=== PATIENT | male | born 1950 | race Caucasian/White ===

== ENCOUNTER 2021-05-07 10:13 | Observation (INO) | payer OTHER ==
[~2021-05-07] VITALS: Ht 193 cm; Wt 113.0 kg
[~2021-05-07 10:13] MED LIST: (None)20 M1 PO; ALBU3IS INH; ALBU90OI INH; ASPI325EC PO; Atarax10 MG PO; B-1100 MG PO; B-121000 MC2 PO; BETA.05TCA TOP; BUDE6HFA INH; CALCAVITDA PO; CARV25 PO; CREON DR 24,001 EACH PO; Coreg12.5 MG PO; DABI150C PO; FISH1000 PO; FURO40 PO; Garlic1000 MG PO; Heparin 5,5000 U/0.5 SQ; INSU100I6; LEVO750 PO; LISI5 PO; METO50 PO; MORP30 PO; NYST100P; OLAN5 PO; OMEG1CAP30 PO; OMEPRAZOLE MAGN20 MG PO; ONE DAILY COMP1 EACH PO; OXYACE5T PO; OXYC5; Omeprazole20 M1; Omeprazole20 M1 PO; PARO20 PO; PAXIL40 MG PO; PERIDEX15 ML MM; PRAZ1 PO; PRED10 PO; PREG150 PO; PREVALITE PAC4 G/PKT PO; PRIM50 PO; PYRI100 PO; SILD50TA PO; TAMS.4ER PO; TRAZ100 PO; XARELTO15 MG PO; XARELTO20 MG PO; [UNRECOGNIZED DRUG - OTHER] INH
[2021-05-07 11:08] LABS: Hematocrit 44.1 % (37.0-53.0); Hemoglobin 13.8 g/dL (13.5-17.5); Mean Corpuscular HGB 30.1 pg (26.0-34.0); Mean Corpuscular HGB Conc 31.3 g/dL (31.5-36.5); Mean Corpuscular Volume 96 fL (80-100); RDW Coefficient Variation 13.2 % (11.7-14.2); RDW Standard Deviation 46.9 fL (35.1-46.3); Red Blood Cell Count 4.59 M/mm3 (4.30-5.90)
[2021-05-07 11:21] LABS: Anion Gap 5 mmol/L (6-16); Blood Urea Nitrogen 8 mg/dL (8-24); Bun/Creatinine Ratio 10.9 (12.0-20.0); CO2, Blood 31 mmol/L (21-32); Calcium, Blood 8.6 mg/dL (8.5-10.1); Chloride, Blood 104 mmol/L (98-108); Creatinine, Blood 0.74 mg/dL (0.60-1.20); Glomerular Filtration Rate >60 (60-); Glucose, Blood 107 mg/dL (70-99); Potassium, Blood 3.6 mmol/L (3.5-5.5); Sodium, Blood 140 mmol/L (136-145)
[2021-05-07 11:55] LABS: White Blood Cell Count 14.95 K/mm3 (4.00-11.30)
[2021-05-07 11:56] LABS: Mean Platelet Volume 13.7 fL (9.1-12.4)
[2021-05-07 11:57] LABS: Platelet Count 65 K/mm3 (150-400)
[2021-05-07 12:19] LABS: BASOPHILS PERCENT MAN 0 % (0-2); EOSINOPHILS PERCENT MAN 0 % (0-6); LYMPHOCYTES ABSOLUTE MAN 1.79 K/mm3 (0.84-5.20); LYMPHOCYTES PERCENT MAN 12 % (21-46); MONOCYTES ABSOLUTE MAN 5.08 K/mm3 (0.16-1.47); MONOCYTES PERCENT MAN 34 % (4-13); NEUTROPHILS ABSOLUTE MAN 8.07 K/mm3 (1.96-9.15); SEG NEUTROPHILS PERCENT MAN 54 % (41-73); TOTAL CELLS COUNTED 100
[2021-05-07 12:40] LABS: Base Excess Venous 7.6 mmol/L; Bicarbonate Venous 29.7 mmol/L (24.0-30.0); PCO2 Venous 55.9 mmHg (38-42); PO2 Venous 76.9 mmHg (38-42); pH Blood Venous 7.38 (7.34-7.37)
[2021-05-07] MEDS ORDERED: OXYC15ER PO (14:28)
[2021-05-07] MEDS ORDERED: ACET500 PO ×2 (14:28→14:40)
[2021-05-07] MEDS ORDERED: COMBIVENT RESPIM4 G1 INH (14:41)
[2021-05-07] MEDS ORDERED: IPRAT-ALBUT 0.5-3 ML INH (14:41)
[2021-05-07] MEDS ORDERED: CALCIUM 500 MG1 EAC2 PO (14:42)
[2021-05-07] MEDS ORDERED: Aspir 8181 MG PO (14:42)
[2021-05-07] MEDS ORDERED: BUDESONIDE-FO10.2 G2 INH (14:42)
[2021-05-07] MEDS ORDERED: ZYRTEC10 M2 PO (14:43)
[2021-05-07] MEDS ORDERED: Vitamin D1000 UNI1 PO (14:43)
[2021-05-07] MEDS ORDERED: Carvedilol12.5 MG PO (14:43)
[2021-05-07] MEDS ORDERED: FINA5 PO (14:43)
[2021-05-07] MEDS ORDERED: FISH OIL 1,2001 EAC1 PO ×2 (14:44)
[2021-05-07] MEDS ORDERED: OMEP20ER PO (14:45)
[2021-05-07] MEDS ORDERED: MULTI-VITAMIN1 EAC2 PO (14:45)
[2021-05-07] MEDS ORDERED: MELA3 PO (14:45)
[2021-05-07] MEDS ORDERED: OXYC5 PO (14:47)
[2021-05-07] MEDS ORDERED: PRED5 PO (14:49)
[2021-05-07] MEDS ORDERED: Primidone50 MG PO (14:49)
[2021-05-07] MEDS ORDERED: PARO20 PO (14:49)
[2021-05-07] MEDS ORDERED: PANCRELIPASE PO (14:49)
[2021-05-07] MEDS ORDERED: TAMS.4ER PO (14:50)
[2021-05-07] MEDS ORDERED: SODIUM FLUORID100 M2 UD (14:50)
--- NOTE | 2021-05-07 17:08 | NUR ---
ADMIT PT ADMITTED AT 1600. PT ORIENTED TO ROOM & GIVEN CALL LIGHT. SNACK & BEVERAGE PROVIDED. PT REPORTS FEELING CONSTIPATED. THIS WAS RELAYED TO DR. SOLOMON AND ORDER FOR SENNA WAS OBTAINED. NICOTINE PATCH ORDER ALSO OBTAINED FRO . PT STATES HE WANTS TO BE A FULL CODE. DR. SOLOMON ORDERED TO CHANGE FROM DNR TO FULL CODE. PT SATING IN THE 90S ON 2L O2 VIA NC. REQUESTING BREATHING TREATMENT. RT NOTIFIED. FAMILY AWARE OF PT ADMIT. FAX SENT TO [facility] FOR ACCURATE MED REC TO BE COMPLETED.
[2021-05-08 00:11] LABS: U Amphetamine Screen Not Detected; U Barbituate Screen DETECTED; U Benzodiazapine Screen DETECTED; U Buprenorphine Screen Not Detected; U Cannabinoids Screen Not Detected; U Cocaine Screen Not Detected; U Methadone Screen Not Detected; U Methamphetamine Screen Not Detected; U Opiates Screen Not Detected; U Oxycodone Screen DETECTED; U Phencyclidine Screen Not Detected; U Propoxyphene Screen Not Detected
[2021-05-08] MEDS ORDERED: MUPIROCIN1 G1 TOP (03:17)
[2021-05-08] MEDS ORDERED: PREG75 PO (03:20)
--- NOTE | 2021-05-08 04:01 | NUR ---
SHIFT SUMMARY AOX3 WITH CONFUSION AND INCRESED ANXIETY IN AND OUT.UNSTAIDY GAIT NOTED PATIENT WONT ASK FOR ASSISTANCE TO GO TO THE BATHROOM BED ALARM ON PT TEACHING DONE WHY ITS IMPORTANT OF CALLING STAFF FOR ASISST WITH TRANSFER BUT WAS VERY UPSATE STATING "I CAN DO WHAT I WANT TO DO" C/O PAIN 11/19 TO HIS LOWER BACK PT REQUETED OXYCODONE 15MG HE TAKES IT HOME ROUTINE ADM WITH POSTIVE EFFECT.PT REFUSED TO WEAR CPAP AFTER PUT IT ON FOR FEW MIN STATING ITS NOT COMFOTABLE RT MADE AWARE .
[2021-05-08 05:59] LABS: Anion Gap 7 mmol/L (6-16); Blood Urea Nitrogen 12 mg/dL (8-24); Bun/Creatinine Ratio 17.9 (12.0-20.0); CO2, Blood 27 mmol/L (21-32); Calcium, Blood 8.4 mg/dL (8.5-10.1); Chloride, Blood 104 mmol/L (98-108); Creatinine, Blood 0.67 mg/dL (0.60-1.20); Glomerular Filtration Rate >60 (60-); Glucose, Blood 127 mg/dL (70-99); Sodium, Blood 138 mmol/L (136-145)
[2021-05-08 06:00] LABS: Hematocrit 44.8 % (37.0-53.0); Hemoglobin 13.8 g/dL (13.5-17.5); Mean Corpuscular HGB 29.9 pg (26.0-34.0); Mean Corpuscular HGB Conc 30.8 g/dL (31.5-36.5); Mean Corpuscular Volume 97 fL (80-100); RDW Standard Deviation 46.4 fL (35.1-46.3); Red Blood Cell Count 4.62 M/mm3 (4.30-5.90)
[2021-05-08 06:10] LABS: BASOPHILS ABSOLUTE AUTO 0.01 K/mm3 (0.00-0.23); BASOPHILS PERCENT AUTO 0 % (0-2); EOSINOPHILS ABSOLUTE AUTO 0.04 K/mm3 (0.00-0.68); EOSINOPHILS PERCENT AUTO 0 % (0-6); IMMATURE GRAN ABSOLUTE AUTO 0.41 K/mm3 (0.00-0.10); IMMATURE GRAN PERCENT AUTO 5 % (0-1); LYMPHOCYTES ABSOLUTE AUTO 0.71 K/mm3 (0.84-5.20); LYMPHOCYTES PERCENT AUTO 8 % (21-46); MONOCYTES ABSOLUTE AUTO 1.39 K/mm3 (0.16-1.47); MONOCYTES PERCENT AUTO 15 % (4-13); NEUTROPHILS ABSOLUTE AUTO 6.54 K/mm3 (1.96-9.15); NEUTROPHILS PERCENT AUTO 72 % (41-73)
[2021-05-08 07:21] LABS: Mean Platelet Volume 13.1 fL (9.1-12.4)
[2021-05-08 07:23] LABS: Platelet Count 76 K/mm3 (150-400)
[2021-05-08] MEDS ORDERED: PRED5 PO (12:00)
[2021-05-08] MEDS ORDERED: ALBU90OI INH (12:01)
[2021-05-08] MEDS ORDERED: ASCO500 PO (12:01)
[2021-05-08] MEDS ORDERED: GUAI600T33 PO (12:02)
[2021-05-08] MEDS ORDERED: AZIT500 PO (12:02)
[2021-05-08] MEDS ORDERED: VISBIOME 112.51 EACH PO (12:03)
[2021-05-08] MEDS ORDERED: Nicoderm Cq1 EACH TOP (12:03)
[2021-05-08] MEDS ORDERED: Cyclobenzaprine5 MG PO (12:04)
[2021-05-08] MEDS ORDERED: CEFD300 PO (12:04)
--- NOTE | 2021-05-08 13:58 | NUR ---
DISCHARGE SUMMARY PATIENT IS ALERT AND ORIENTED X4. PATIENT WAS DISCHARGED HOME. PATIENT VERBALLY UNDERSTOOD DISCHARGE INSTRUCTIONS. PATIENT HAD NO ACUTE EVENTS THIS SHIFT. PATIENT CALLED [facility] AND LEFT WITH NURSE ISRAEL WITHOUT INCIDENT.
== END 2021-05-08 13:22 | disposition home or self-care (01) ==
LOC: ER 10:13 → MEDS 10:14
PROVIDERS: Nurse Practitioner Acute Care; Student in an Organized Health Care Education/Training Program; ADMIT Internal Medicine
DX: A41.9 Sepsis, unspecified organism (principal); J44.0 Chronic obstructive pulmonary disease with (acute) lower respiratory infection; J20.9 Acute bronchitis, unspecified; J44.1 Chronic obstructive pulmonary disease with (acute) exacerbation; J96.21 Acute and chronic respiratory failure with hypoxia; G47.33 Obstructive sleep apnea (adult) (pediatric); I48.20 Chronic atrial fibrillation, unspecified; I10 Essential (primary) hypertension; F17.210 Nicotine dependence, cigarettes, uncomplicated; G89.29 Other chronic pain; M54.9 Dorsalgia, unspecified; E66.01 Morbid (severe) obesity due to excess calories; D69.6 Thrombocytopenia, unspecified; Z66 Do not resuscitate; Z88.0 Allergy status to penicillin; Z79.01 Long term (current) use of anticoagulants; Z91.19 Patient's noncompliance with other medical treatment and regimen; Z79.82 Long term (current) use of aspirin; Z79.51 Long term (current) use of inhaled steroids; Z79.52 Long term (current) use of systemic steroids; Z99.81 Dependence on supplemental oxygen; Z68.32 Body mass index [BMI] 32.0-32.9, adult
CPT/HCPCS: 36415; 71260; 80048; 82803; 84145; 85025; 85049; 93005; 93010; 94640; 94660; 94762; 96374; 96375; 96376; 99285-25; A9270; G0378; J1885; J2930; J7030; J7512; Q9967

== ENCOUNTER 2022-04-22 10:04 | Emergency (ER) | payer OTHER ==
[~2022-04-22] VITALS: Ht 190.5 cm; Wt 85.7 kg
[~2022-04-22 10:04] MED LIST changes: +ACET500 PO; +ASCO500 PO; +AZIT500 PO; +Aspir 8181 MG PO; +BUDESONIDE-FO10.2 G2 INH; +CALCIUM 500 MG1 EAC2 PO; +CEFD300 PO; +COMBIVENT RESPIM4 G1 INH; +Carvedilol12.5 MG PO; +Cyclobenzaprine5 MG PO; +DULERA 100 MCG/13 GM INH; +FINA5 PO; +FISH OIL 1,2001 EAC1 PO; +GUAI600T33 PO; +IPRAT-ALBUT 0.5-3 ML INH; +MELA3 PO; +MULTI-VITAMIN1 EAC2 PO; +MUPIROCIN1 G1 TOP; +Nicoderm Cq1 EACH TOP; +OMEP20ER PO; +OXAYDO5 M1 PO; +OXYC15ER PO; +OXYC5 PO; +PANCRELIPASE PO; +PRED5 PO; +PREG75 PO; +Prednisone10 MG PO; +Primidone50 MG PO; +Robaxin750 MG PO; +SODIUM FLUORID100 M2 UD; +STRIVERDI RESPIM4 G1 INH; +VISBIOME 112.51 EACH PO; +Vitamin D1000 UNI1 PO; +ZYRTEC10 M2 PO
== END 2022-04-22 11:54 | disposition home or self-care (01) ==
LOC: ER 10:04
DX: M48.54XA Collapsed vertebra, not elsewhere classified, thoracic region, initial encounter for fracture (principal); M48.56XA Collapsed vertebra, not elsewhere classified, lumbar region, initial encounter for fracture; M85.88 Other specified disorders of bone density and structure, other site; G89.29 Other chronic pain; J44.9 Chronic obstructive pulmonary disease, unspecified; I48.91 Unspecified atrial fibrillation; I10 Essential (primary) hypertension; F17.200 Nicotine dependence, unspecified, uncomplicated; G47.33 Obstructive sleep apnea (adult) (pediatric); Z99.81 Dependence on supplemental oxygen; Z79.899 Other long term (current) drug therapy
CPT/HCPCS: 94644; 94664; A9270; J1170; J1885

== ENCOUNTER 2022-05-03 11:21 | Inpatient (IN) | payer OTHER ==
[~2022-05-03] VITALS: Ht 193 cm; Wt 102.0 kg
[~2022-05-03 11:21] MED LIST changes: +PRED20 PO
[2022-05-03 12:29] LABS: Base Excess Venous 15.7 mmol/L; PCO2 Venous 81.4 mmHg (38-42); pH Blood Venous 7.32 (7.34-7.37)
[2022-05-03 12:51] LABS: Hematocrit 43.2 % (37.0-53.0); Hemoglobin 13.5 g/dL (13.5-17.5); Mean Corpuscular HGB 31.5 pg (26.0-34.0); Mean Corpuscular HGB Conc 31.3 g/dL (31.5-36.5); Mean Corpuscular Volume 101 fL (80-100); RDW Coefficient Variation 12.3 % (11.7-14.2); RDW Standard Deviation 45.6 fL (35.1-46.3); Red Blood Cell Count 4.29 M/mm3 (4.30-5.90)
[2022-05-03 12:53] LABS: Mean Platelet Volume 14.1 fL (9.1-12.4); Platelet Count 117 K/mm3 (150-400); White Blood Cell Count 12.25 K/mm3 (4.00-11.30)
[2022-05-03 13:05] LABS: Albumin, Blood 3.4 g/dL (3.4-5.0); Albumin/Globulin Ratio 0.9 (0.8-1.8); Bilirubin, Total 0.5 mg/dL (0.1-1.0); Bun/Creatinine Ratio 15.6 (12.0-20.0); Calcium, Blood 8.4 mg/dL (8.5-10.1); Creatinine, Blood 0.58 mg/dL (0.60-1.20); Globulin, Blood 3.9 g/dL (2.2-4.0); Potassium, Blood 4.3 mmol/L (3.5-5.5); Total Protein, Blood 7.3 g/dL (6.4-8.2)
[2022-05-03 13:33] LABS: BAND PERCENT MAN 1 % (0-8); BASOPHILS PERCENT MAN 0 % (0-2); EOSINOPHILS PERCENT MAN 0 % (0-6); LYMPHOCYTES ABSOLUTE MAN 0.98 K/mm3 (0.84-5.20); LYMPHOCYTES PERCENT MAN 8 % (21-46); METAMYELOCYTE ABSOLUTE MAN 0.36 K/mm3 (0.00-0.00); METAMYELOCYTE PERCENT MAN 3 % (0-0); MONOCYTES ABSOLUTE MAN 3.55 K/mm3 (0.16-1.47); MONOCYTES PERCENT MAN 29 % (4-13); MYELOCYTE ABSOLUTE MAN 0.12 K/mm3 (0.00-0.00); MYELOCYTE PERCENT MAN 1 % (0-0); NEUTROPHILS ABSOLUTE MAN 7.22 K/mm3 (1.96-9.15); SEG NEUTROPHILS PERCENT MAN 58 % (41-73); TOTAL CELLS COUNTED 100
[2022-05-03 14:09] LABS: Influenza A, PCR NEGATIVE (NEGATIVE); Influenza B, PCR NEGATIVE (NEGATIVE); Resp Syncytial Virus, PCR NEGATIVE (NEGATIVE); SARS-Cov-2 (COVID-19) PCR, MMC NEGATIVE (NEGATIVE)
[2022-05-03 16:18] LABS: Source, Urine Clean Catch
[2022-05-03 16:22] LABS: Appearance, Urine Clear (Clear); Bilirubin, Urine Neg (Neg); Blood, Urine Neg (Neg); Color, Urine Yellow (P-Yellow); Glucose Qualitative, Urine Neg (Neg); Ketones, Urine Neg (Neg); Leukocyte Esterase, Urine Neg (Neg); Nitrite, Urine Neg (Neg); Protein, Urine 1+ (Neg); Urobilinogen, Urine NORM (Normal); pH, Urine 6.5 (5.0-8.0)
[2022-05-03 17:34] LABS: Base Excess Venous 15.5 mmol/L; Bicarbonate Venous 35.2 mmol/L (24.0-30.0); PCO2 Venous 86.4 mmHg (38-42)
[2022-05-03 21:33] LABS: Base Excess Venous 15.9 mmol/L; Bicarbonate Venous 37.3 mmol/L (24.0-30.0); PCO2 Venous 54.2 mmHg (38-42); pH Blood Venous 7.47 (7.34-7.37)
--- NOTE | 2022-05-03 21:58 | NUR ---
UPDATE PT REQUESTED UPDATE ON , THIS RN CALLED ER FOR UPDATE. PT UPDATED THAT PT'S IS SLEEPING AT THIS TIME. PLAN FOR PT'S TO STAY IN ER AND HAVE CHEMISTRY TECHNICIAN CONSULT WITH PT'S IN AM. BROTHER IN LAW BILL UPDATED PER PT REQUEST.
[2022-05-04 04:11] LABS: Hematocrit 40.3 % (37.0-53.0); Mean Corpuscular HGB 31.9 pg (26.0-34.0); Mean Corpuscular HGB Conc 32.3 g/dL (31.5-36.5); Mean Corpuscular Volume 99 fL (80-100); RDW Coefficient Variation 12.1 % (11.7-14.2); RDW Standard Deviation 44.4 fL (35.1-46.3); Red Blood Cell Count 4.08 M/mm3 (4.30-5.90)
[2022-05-04 04:14] LABS: Mean Platelet Volume 13.6 fL (9.1-12.4); Platelet Count 118 K/mm3 (150-400); White Blood Cell Count 5.46 K/mm3 (4.00-11.30)
[2022-05-04 04:26] LABS: BAND PERCENT MAN 2 % (0-8); BASOPHILS PERCENT MAN 0 % (0-2); EOSINOPHILS PERCENT MAN 0 % (0-6); LYMPHOCYTES ABSOLUTE MAN 0.49 K/mm3 (0.84-5.20); LYMPHOCYTES PERCENT MAN 9 % (21-46); MONOCYTES ABSOLUTE MAN 0.38 K/mm3 (0.16-1.47); MONOCYTES PERCENT MAN 7 % (4-13); NEUTROPHILS ABSOLUTE MAN 4.58 K/mm3 (1.96-9.15); SEG NEUTROPHILS PERCENT MAN 82 % (41-73); TOTAL CELLS COUNTED 100
[2022-05-04 04:32] LABS: Albumin, Blood 3.1 g/dL (3.4-5.0); Albumin/Globulin Ratio 0.8 (0.8-1.8); Bilirubin, Total 0.6 mg/dL (0.1-1.0); Bun/Creatinine Ratio 26.2 (12.0-20.0); Calcium, Blood 8.7 mg/dL (8.5-10.1); Creatinine, Blood 0.54 mg/dL (0.60-1.20); Potassium, Blood 4.3 mmol/L (3.5-5.5); Total Protein, Blood 7.1 g/dL (6.4-8.2)
--- NOTE | 2022-05-04 05:14 | NUR ---
ARRIVAL TO [facility]/SHIFT SUMMARY PT ARRIVED TO [facility] AT APPROXIMATELY 2100. PT ARRIVED ON BiPAP 14/6 30% FiO2 WITH RT AT BEDSIDE. PT WAS SLID OVER FROM ER GURNEY TO HOSPITAL BED WITH 4 CLINICAL STAFF MEMBERS AND RT. PT A&Ox4, COMMUNICATES NEEDS AND ANSWERING QUESTIONS APPROPRIATELY. VSS ON ARRIVAL, SpO2> 92% ON BiPAP 14/6 30% FiO2, DENIES SOB, RR 20's. BP STABLE, AFIB 90-120's, DENIES CP. PT COMPLAINING OF PAIN IN RIB/BACK, STARTED ON HOME REGIMEN PAIN CONTROL. PT MILDLY FRUSTRATED BUT COOPERATIVE WHEN DOING ADMISSION Hx. VS REMAINED STABLE THROUGHOUT SHIFT, PT REMAINED IN AFIB 90-120's DENIES CP/PRESSURE/SOB. PT TOLERATED BiPAP 14/6 30% FiO2 WELL THOUGHOUT SHIFT. PT CONTINENT OF URINE, USED URINAL WITH ASSISTANCE. NO BM THIS SHIFT. NO OTHER EVENTS, WILL REPORT TO ONCOMING RN.
[2022-05-04] MEDS ORDERED: CYCL10 PO (10:25)
[2022-05-04] MEDS ORDERED: ASMANEX HFA13 G6 INH (10:26)
[2022-05-04] MEDS ORDERED: COMBIVENT RESPIM4 G1 INH (10:28)
[2022-05-04] MEDS ORDERED: IPRAT-ALBUT 0.5-3 ML INH (10:29)
[2022-05-04] MEDS ORDERED: STIOLTO RESPIMAT4 G1 INH (10:30)
--- NOTE | 2022-05-04 17:00 | NUR ---
SHIFT SUMMARY PT REMAINS ALERT AND ORIENTED. VS STABLE. HR WAS AFIB ON THE MONITOR IN THE 90'S, BUT TELEMETRY HAS BEEN DISCONTINUED. BP STABLE. PT HAS BEEN OFF BIPAP ALL SHIFT AND TOLERATING 2L NC WHICH IS HIS BASELINE AND SATS REMAIN ABOVE 90%. PT COMPLAINS OF PAIN IN HIS BACK AND RIB AREA MOST OF SHIFT AND MEDICATED PER EMAR. PT UP TO RECLINER MULTIPLE TIMES THROUGHOUT SHIFT WITH 1 ASSIST, GATE BELT AND WALKER. PT PROVIDED BED BATH TODAY. PALLIATIVE CARE IN TO VISIT PT THIS EVENING. PT ANXIOUS MOST OF SHIFT ABOUT HIS THAT IS HOLDING IN THE ER. WILL CONTINUE TO MONITOR AND REPORT TO ONCOMING RN
--- NOTE | 2022-05-04 18:31 | NUR ---
CASE CONF WITH RN, REPORTS PT IS DOING BETTER AND STATUS HAS BEEN CHANGED TO MEDICAL STATUS, NO CONCERNS AT THIS TIME. MET WITH PT, HE IS SITTING UPRIGHT IN CHAIR AND APPEARS TO BE ANXIOUS. PT HAS BEEN OFF BIPAP SINCE YESTERDAY AND IS NOW ON NASAL CANNULA. PT SPEAKING IN FULL SENTANCES, BUT THE CONVERSATION PROGRESSES, BECOMES INCREASINGLY AND UNABLE TO COMPLETE HIS SENTANCES. PT VERBALIZES THAT HE IS MOST CONCERNED ABOUT HIS . PTS HAS DEMENTIA AND HI IS HER SOLE CAREGIVER IN THEIR HOME. SHE ACCOMPANIED HIM TO THE ER LAST NIGHT AND SINCE HE WAS ADMITTED TO THE HOSPITAL, THERE IS NO ONE TO CARE FOR HER. SHE HAS PARKINSONS/DEMENTIA AND IS UNABLE TO CARE FOR HERSELF. SHE, (JERMAINE GUARDADO) REMAINS IN THE ED IN THE ED, ADMITTED CW/CM LOOK FOR TEMPORARY PLACEMENT WHILE THE PTS RECOVERS. PT VERBALIZES FURTHER CONCERNS THAT HE IS NOT SURE THAT WHEN HE GET BETTER, THAT HE IS GOING TO BE ABLE TO PROVIDE CARE FOR HIS . HE REPORTS HE HAS BEEN BECOMING INCREASINGLY WEAK, UNSTEADY ON HIS FEET IN ADDITION TO HIS INTENSE BACK PAIN. HE REPORTS HE HAS BEEN UNABLE TO SHOWER FOR THE LAST COUPLE OF WEEKS AND THE L AST 2 DAYS WAS UNABLE TO PREPARE FOOD FOR HIMSELF OR HIS . HE VERBALIZES THAT HE DOESNT HAVE ANY FAMILY OR FRIENDS THAT ARE WILLING TO HELP. HE STATES, "MY NIEGHBOR AND BROTHER IN LAW OFFER, BUT NEVER ANSWER THEIR PHONE IF I REACH OUT FOR HELP." PT FEELS OVERWHELMED AND ALONE. REASSURED HIM THAT WE WILL CONTINUE TO CARE FOR HER IN THE HOSPITAL AND WILL NOT DISCHARGE HER HOME ALONE OR IN AN UNSAFE SITUATION AND THIS SEEMS TO EASE SOME OF HIS ANXIETY. ADVISED PT THAT I WILL ARRANGE TO HAVE HIS BROUGHT TO HIS ROOM SO THEY CAN VISIT AFTER DINNER. PT IS GRATEFUL AND LOOKING FORWARD TO SEEING HER HE HASNT SEEN OR HEARD FROM SINCE HE WAS ADMITTED LAST NIGHT FROM THE ED. ADVISED I WILL HAVE CM FOLLOW UP TOMORROW TO EXPLORE A DC PLAN FOR HIM AND HIS . WILL MAKE SURE HE HAS ANOTHER VISIT WITH HIS TOMORROW.
--- NOTE | 2022-05-04 18:49 | NUR ---
UPDATE REPORT GIVEN TO MEDICAL FLOOR RN. PT TAKEN UP BY KATHLEEN
--- NOTE | 2022-05-04 19:14 | NUR ---
PATIENT TRANSFERRED FROM PCU 12 TO ROOM 328. REPORT RECEIVED FROM ANKUSH HASTINGS. 2LO2 TO MAINTAIN SATS, VERY SOB WITH TRANSFER, RECOVERED QUICKLY. A/OX4, ORIENTED TO ROOM AND USE OF CALL LIGHT. ARRIVED WITH VOLUNTEER TO VISIT FROM ED.
--- NOTE | 2022-05-05 05:24 | NUR ---
SUMMARY: NO ACUTE EVENTS OVERNIGHT. PATIENT AOX4. VSS. PATIENT ON 3L NC. HE WORE BIPAP OVERNIGHT WITH 3-4L O2 BLEED. PATIENT UP TO CHAIR WITH 1X ASSIST. VERY SHORT OF BREATH WHEN UP AMBULATING. VOIDS IN URINAL. PAIN MEDS GIVEN PER EMAR. IV STEROIDS GIVEN. CALL LIGHT IN REACH. PATIENT REFUSES TO HAVE THE END ON THE BED IN PLACE HIS FEET TOUCH IT DUE TO HIS HEIGHT. EDUCATED PATIENT TO CALL BEFORE HE GETS OUT OF BED.
--- NOTE | 2022-05-05 17:17 | NUR ---
PATIENT A/OX4, UP WITH 1 ASSIST TO CHAIR. 2-3LO2 TO MAINTAIN SATS, BIPAP IN USE AT [facility]. CHRONIC BACK PAIN, MEDICATING WITH OXYCODONE AND TYLENOL. VSS THIS SHIFT. COOPERATIVE WITH CARE, HOWEVER ANXIOUS AT TIMES. WORKING ON GETTING ON OHP. HOLDING IN ED D/T PATIENT BEING HER PRIMARY CAREGIVER. NO ACUTE CHANGES THIS SHIFT.
--- NOTE | 2022-05-06 03:56 | NUR ---
NEWSPAPER EDITOR SUMMARY DBP ELEVATED, OTHERWISE VSS. UP WITH OBS IN ROOM FOR SAFETY. PT EASILY FRUSTRATED WITH GETTING TO AND FROM THE BED TO CHAIR AND BACK. O2 PER NC AT 2-3L/MIN. HOB ELEVATED WHILE IN BED. HAS BEEN RESTING WITH FEW INTERRUPTIONS WITH THE EXCEPTION OF CALLING OUT FOR PAIN MEDS WHEN HE COULDNT FIND HIS CALL LIGHT. RECEIVED ANALGESICS ABOUT EVERY 4-5 HRS THIS SHIFT - SEE [facility] FOR DETAILS. RESTING QUIETLY AT THIS TIME. CALL LIGHT IN REACH. [facility] ONTINUE TO MONITOR.
[2022-05-06 05:42] LABS: Hematocrit 38.2 % (37.0-53.0); Hemoglobin 12.5 g/dL (13.5-17.5); Mean Corpuscular HGB 32.1 pg (26.0-34.0); Mean Corpuscular HGB Conc 32.7 g/dL (31.5-36.5); Mean Corpuscular Volume 98 fL (80-100); Mean Platelet Volume 12.8 fL (9.1-12.4); Platelet Count 127 K/mm3 (150-400); RDW Coefficient Variation 12.6 % (11.7-14.2); RDW Standard Deviation 44.9 fL (35.1-46.3)
[2022-05-06 05:43] LABS: BASOPHILS ABSOLUTE AUTO 0.01 K/mm3 (0.00-0.23); BASOPHILS PERCENT AUTO 0 % (0-2); EOSINOPHILS ABSOLUTE AUTO 0.06 K/mm3 (0.00-0.68); EOSINOPHILS PERCENT AUTO 1 % (0-6); IMMATURE GRAN ABSOLUTE AUTO 0.31 K/mm3 (0.00-0.10); IMMATURE GRAN PERCENT AUTO 4 % (0-1); LYMPHOCYTES ABSOLUTE AUTO 0.64 K/mm3 (0.84-5.20); LYMPHOCYTES PERCENT AUTO 7 % (21-46); MONOCYTES ABSOLUTE AUTO 0.54 K/mm3 (0.16-1.47); MONOCYTES PERCENT AUTO 6 % (4-13); NEUTROPHILS PERCENT AUTO 82 % (41-73); White Blood Cell Count 8.86 K/mm3 (4.00-11.30)
[2022-05-06 06:06] LABS: Bun/Creatinine Ratio 32.6 (12.0-20.0); Calcium, Blood 8.7 mg/dL (8.5-10.1); Creatinine, Blood 0.74 mg/dL (0.60-1.20); Potassium, Blood 4.5 mmol/L (3.5-5.5)
--- NOTE | 2022-05-06 10:47 | NUR ---
ATTEMPTED TO MAKE A VISIT, PT IS ON THE PHONE WORKING ON COORDINATION OF PLACEMENT FOR HIS . WILL ATTEMPT ANOTHER VISIT LATER ON TODAY.
--- NOTE | 2022-05-06 14:26 | NUR ---
MET WITH PT IN THE ROOM, HE IS SITTING UP IN THE CHAIR AND A LITTLE ANXIOUS. HE REPORTS HE FINALLY HAS FINISHED WITH ALL THE CALLS AND PAPERWORK TO GET HIS SENT TO A FACILITY FOR CARE. HE REPORTS SHE WILL BE GOING TO [facility] IN [place]. RESSURED HIM THAT THIS IS A NICE FACILITY WITH COMPETENT AND CARING, CARE GIVERS THAT WILL TAKE VERY GOOD CARE OF HER. HE IS APPRECIATIVE OF THIS INFORMATION AND HELPS EASE HIS ANXIETY. HE REPORTS HE WILL BE GOING TO [facility] UPON DC AND IS NOT SURE WHEN THAT WILL BE. HIS BREATHING APPEARS TO BE LESS LABORED DURING OUR CONVERSATION TODAY AND IS ABLE TO COMPLETE HIS SENTANCES. OFFERED SUPPORT FROM PALLIATIVE CARE, HE DECLINES AT THIST TIME AND REPORTS NO NEEDS, QUESTIONS OR CONCERNS. PT WOULD LIKE TO SEE HIS , WHOS IS STILL IN THE ER BEFORE SHE LEAVES TO GO TO [facility] FOR [facility]. ADVISED I WILL WORK WITH THE ED TO TRY TO ARRANGE THAT.
--- NOTE | 2022-05-06 19:55 | NUR ---
SHIFT SUMMARY PTN HERE WITH PNEUMONIA, ON 3L NC. HR [address] ALCARAZ. PTN WAS AGITATED AT THE TIME, AND MOST OTHER READINGS WERE MUCH LOWER THROUGHOUT THE DAY. PTN HAS IN ER WHO WILL BE GOING TO [facility] IN [place], AND PTN WILL BE GOING TO A SNF, SO PALLIATIVE CARE AND ASSORTMENT PLANNER RADHA ARRANGED FOR A SITTER SO THAT COULD COME UP AND SEE PTN FOR ABOUT A HALF HOUR. PTN PANCRELIPASE HAD NOT BEEN GIVEN UNTIL PTN BROUGHT IN TODAY, APPROVED BY PHARMACY AND STARTED. PTN WILL KEEP ON PERSON FOR DOSING DURING MEALS. PTN REPORTED BEING CONSTIPATED AND REQUESTED ENEMA, ORDERED X1 DOSE PRN. PTN WILL REQUEST IF PROBLEM CONTINUES. PTN HAS CHRONIC BACK PAIN THAT WAS TREATED PER EMAR. CONTINUE TO MONITOR.
[2022-05-07 05:20] LABS: Hematocrit 33.4 % (37.0-53.0); Hemoglobin 11.1 g/dL (13.5-17.5); Mean Corpuscular HGB 31.8 pg (26.0-34.0); Mean Corpuscular HGB Conc 33.2 g/dL (31.5-36.5); Mean Corpuscular Volume 96 fL (80-100); RDW Coefficient Variation 12.5 % (11.7-14.2); Red Blood Cell Count 3.49 M/mm3 (4.30-5.90)
[2022-05-07 05:27] LABS: Anion Gap 5 mmol/L (6-16); Blood Urea Nitrogen 50 mg/dL (8-24); Bun/Creatinine Ratio 76.5 (12.0-20.0); CO2, Blood 34 mmol/L (21-32); Calcium, Blood 8.7 mg/dL (8.5-10.1); Chloride, Blood 93 mmol/L (98-108); Creatinine, Blood 0.65 mg/dL (0.60-1.20); Glomerular Filtration Rate 100 (60-); Glucose, Blood 164 mg/dL (70-99); Phosphorus, Blood 3.3 mg/dL (2.5-4.9); Potassium, Blood 4.9 mmol/L (3.5-5.5); Sodium, Blood 132 mmol/L (136-145)
[2022-05-07 05:39] LABS: Mean Platelet Volume 13.9 fL (9.1-12.4); Platelet Count 140 K/mm3 (150-400); White Blood Cell Count 11.21 K/mm3 (4.00-11.30)
--- NOTE | 2022-05-07 06:24 | NUR ---
FASHION PHOTOGRAPHER SUMMARY: A&Ox4. COOPERATIVE WITH CARE. CALLS APPROPRIATELY AND IS ABLE TO COMMUNICATE NEEDS EFFECTIVELY. VSS. MAIN COMPLAINT T/O THE NIGHT IS HIS PAIN. UPSET THAT HE GOT OFF OF HIS SCHEDULE AND WANTS TO RECEIVE HIS MEDS AT EXACTLY 0300/0900/1500/2100. TOLD HIM STAFF WILL DO BEST ABLE TO STAY ON SCHEDULE. CONTINUOUS BI-OX, O2 VIA NC. WEARING BiPap PART OF THE NIGHT. ANTICIPATE DC TO SNF WHEN MEDICALLY STABLE. LABS COLLECTED THIS AM; NO CRITICAL VALUE NOTIFICATIONS RECEIVED AT THIS TIME. WILL REPORT TO ONCOMING RN.
--- NOTE | 2022-05-07 19:40 | NUR ---
SHIFT SUMMARY PTN REMAINED CONSTIPATED, AND FINALLY REQUESTED TO USE THE ENEMA ORDERED YESTERDAY. THIS WAS NOT VERY SUCCESFUL DUE TO THE PTN INABIILTY TO LIE AND REMAINED IN STANDING POSITION, WELL SUSPECTED IMPACTED STOOL. AFTER TRIED DIGITAL EXTRACTION WITH LUBRICANT, AND RESULTED EVENTUALLY IN A LARGE BOWEL MOVEMENT. PTN FELT BETTER FROM THAT, BUT REMAINS UNCOMFORTABLE DUE TO BACK PAIN. HE WAS UNABLE TO COOPERATE WITH SHOWER THAT HE REQUESTED DUE TO THE PAIN. PTN IS MEDICATED PER EMAR. PRODUCT TRAINER IS AWARE OF PTN DESIRE FOR CLEANING. ORDER FOR FLU[facility] GIVEN. [facility]
--- NOTE | 2022-05-08 04:37 | NUR ---
SHIFT NOTE PATIENT REMAINED ALERT AND ORIENTED X4, LABILE, AND FRUSTRATED WITH CARE FOR MOST OF THE NIGHT. CALLS TO MAKE NEEDS KNOW. LUNG SOUNDS DIM, AND SHALLOW, 3L NC WHEN NOT ON BIPAP. TOLERATED BIPAP WELL. NO EDEMA, HEART SOUNDS DISTANT, CAP REFIL AND PULSES WNL. IV SL AND WNL. ABD ROUND AND TOUGHT, WITH HYPERACTIVE BOWEL SOUNDS. NO BM THIS SHIFT, BUT GOOD UO. PAIN TREATED WITH QID MEDICATIONS PER JUN. WILL CONT TO MONITOR.
[2022-05-08 06:16] LABS: Albumin, Blood 3.1 g/dL (3.4-5.0); Anion Gap 5 mmol/L (6-16); Blood Urea Nitrogen 66 mg/dL (8-24); Bun/Creatinine Ratio 89.7 (12.0-20.0); CO2, Blood 32 mmol/L (21-32); Calcium, Blood 8.4 mg/dL (8.5-10.1); Chloride, Blood 95 mmol/L (98-108); Creatinine, Blood 0.74 mg/dL (0.60-1.20); Glomerular Filtration Rate 96 (60-); Glucose, Blood 131 mg/dL (70-99); Phosphorus, Blood 3.5 mg/dL (2.5-4.9); Potassium, Blood 4.8 mmol/L (3.5-5.5); Sodium, Blood 132 mmol/L (136-145)
[2022-05-08 08:10] LABS: Hematocrit 26.5 % (37.0-53.0); Hemoglobin 8.6 g/dL (13.5-17.5); Mean Corpuscular HGB Conc 32.5 g/dL (31.5-36.5); Mean Corpuscular Volume 99 fL (80-100); Platelet Count 160 K/mm3 (150-400); RDW Coefficient Variation 12.6 % (11.7-14.2); RDW Standard Deviation 45.1 fL (35.1-46.3); Red Blood Cell Count 2.69 M/mm3 (4.30-5.90); White Blood Cell Count 20.82 K/mm3 (4.00-11.30)
[2022-05-08 08:32] LABS: Bilirubin, Direct 0.1 mg/dL (0.0-0.3); Bilirubin, Indirect 0.2 mg/dL (0.1-0.7); Bilirubin, Total 0.3 mg/dL (0.1-1.0); Globulin, Blood 2.9 g/dL (2.2-4.0); Total Protein, Blood 5.9 g/dL (6.4-8.2)
[2022-05-08 10:58] LABS: Hematocrit 25.7 % (37.0-53.0); Hemoglobin 8.6 g/dL (13.5-17.5)
--- NOTE | 2022-05-08 11:45 | NUR ---
V.O. from Dr. Sykes Repeat stat H/H, initiate NS @ 100 mLs/hr, and change scheduling of oxy and tylenol to q6 hours at 0000, 0600, 1200, and 1800 with first dose to start today 05/08 @ 1200. Also received V.O. to d/c COVID swab for discharge disposition d/t medical instability.
[2022-05-08 14:41] LABS: Stool Occult Bld Immuno 1 Positive (NEGATIVE)
[2022-05-08 15:50] LABS: Hematocrit 24.2 % (37.0-53.0); Hemoglobin 7.9 g/dL (13.5-17.5)
--- NOTE | 2022-05-08 18:45 | NUR ---
SHIFT SUMMARY- PT IS ALERT AND ORIENTED X4 AND UP TO CHAIR. PT HAD A LARGE BM THIS MORNING. TARRY AND BLACK. GUAIAC TESTED POSITIVE. AWARE. SEE ORDERS. 2L NC DURING THE DAY O2 SAT >90. PT IS DYSPNIC AT REST AND COMPLAINS OF DIZZINESS WHEN STANDING. USE OF WALKER AND 1 PERSON ASSIST.
[2022-05-08 21:36] LABS: Hematocrit 21.7 % (37.0-53.0)
--- NOTE | 2022-05-09 06:30 | NUR ---
SHIFT SUMMARY 71 YR M ADMITTED ON 05/03/22 FOR ARF/COPD. DNR. PT HBG TRENDING DOWNWARD AND REACHED 7.0 THIS SHIFT. HOSPITALIST WAS NOTIFIED AND ONE UNIT OF PRBC WAS ORDERED AND ADMINISTERED. PT TOLERATED WELL. NEW HGB LAB TO BE DRAWN AT 0730 THIS A.M. PT IS VERY ANXIOUS ABOUT HIS BLOOD LOSS AND WHEN HE CAN SEE A GI DOCTOR. HE CHOSE TO HAVE HIS CODE STATUS CHANGED STATING THAT HE DID NOT WANT TO "BLEED TO " AND THAT HE WAS NOT READY TO LEAVE HIS . CODE STATUS WAS CHANGED FROM DNR TO FULL CODE. PT C/O CONSTANT BACK PAIN AND IS GRUMPY TO STAFF.
[2022-05-09 08:17] LABS: International Normalized Ratio 1.18; Prothrombin Time Results 12.3 Sec (9.7-11.5)
[2022-05-09 08:19] LABS: Albumin, Blood 3.1 g/dL (3.4-5.0); Anion Gap 2 mmol/L (6-16); Blood Urea Nitrogen 37 mg/dL (8-24); Bun/Creatinine Ratio 44.5 (12.0-20.0); CO2, Blood 34 mmol/L (21-32); Calcium, Blood 8.4 mg/dL (8.5-10.1); Chloride, Blood 98 mmol/L (98-108); Creatinine, Blood 0.83 mg/dL (0.60-1.20); Glomerular Filtration Rate 93 (60-); Glucose, Blood 107 mg/dL (70-99); Phosphorus, Blood 3.6 mg/dL (2.5-4.9); Potassium, Blood 4.5 mmol/L (3.5-5.5); Sodium, Blood 134 mmol/L (136-145)
--- NOTE | 2022-05-09 08:35 | NUR ---
aPTT, PT, Renal Panel, and H/H Confirmed with Dr. Sykes early labs for aPTT, PT, and Renal Panel are already drawn, no need to repeat an hour after 2nd PRBC infused. Repeat H/H still needs to be drawn an hour after 2nd PRBC infused. RN will place order once 2nd PRBC finish infusing.
[2022-05-09 15:18] LABS: Hematocrit 24.4 % (37.0-53.0); Hemoglobin 8.4 g/dL (13.5-17.5)
--- NOTE | 2022-05-09 17:15 | NUR ---
SHIFT SUMMARY- PT IS ALERT AND ORIENTED X4. 1 UNIT OF BLOOD ADMINISTERED TODAY. PT IS ANXIOUS ABOUT UPCOMING TRANSFER TO DIFFERENT HOSPITAL. CALLED [facility] TO GIVE REPORT BUT THEY WERE NOT SURE WHO WOULD BE TAKING THE PT YET. THEY ASKED FOR A NUMBER TO CALL BACK WHEN THE INFORMATION IS KNOWN. INFORMATION PROVIDED.
--- NOTE | 2022-05-09 19:24 | NUR ---
TRANSFER- PT WILL BE TRANSFERED TO [facility] IN [place]. REPORT GIVEN TO CARROLL. CARROLL STATED THAT SHE WILL GIVE REPORT TO ONCOMING NURSE. PT IS ALERT AND ORIENTED X4 HE IS PACKED UP WITH ALL OF HIS BELONGINGS. ON 2L NC. AMBULANCE WILL BE TRANSFERING PT
--- NOTE | 2022-05-09 20:33 | NUR ---
PATIENT WAS PICKED [facility]IA [facility] FOR TRANSPORT. TWO BAGS NV PROVIDED PER THEIR REQUEST. PACKET INCLUDING FACE SHEET WAS PROVIDED. REPORT WAS CALLED BY DAY NURSE. ALL BELONGINGS WERE SENT WITH PATIENT.
== END 2022-05-09 20:01 | disposition short-term general hospital (02) | DRG 189 ==
LOC: ER 11:21 → MEDS 17:29 → PCU 17:29 → MEDS 17:29 → PCU 20:59 → MEDS 05-04 18:52
PROVIDERS: Internal Medicine; Nurse Practitioner Acute Care; Student in an Organized Health Care Education/Training Program; ADMIT Student in an Organized Health Care Education/Training Program
PROC: 5A09357 Assistance with Respiratory Ventilation, Less than 24 Consecutive Hours, Continuous Positive Airway Pressure (ICD-10-PCS; 2022-05-03)
PROC: 30233N1 Transfusion of Nonautologous Red Blood Cells into Peripheral Vein, Percutaneous Approach (ICD-10-PCS; principal; 2022-05-09)
DX: J96.21 Acute and chronic respiratory failure with hypoxia (principal); G92.8 Other toxic encephalopathy; S22.058A Other fracture of T5-T6 vertebra, initial encounter for closed fracture; J44.1 Chronic obstructive pulmonary disease with (acute) exacerbation; I48.20 Chronic atrial fibrillation, unspecified; K86.1 Other chronic pancreatitis; E87.1 Hypo-osmolality and hyponatremia; K92.1 Melena; Z20.822 Contact with and (suspected) exposure to COVID-19; G47.33 Obstructive sleep apnea (adult) (pediatric); M54.9 Dorsalgia, unspecified; G89.29 Other chronic pain; Z66 Do not resuscitate; F32.A Depression, unspecified; F41.9 Anxiety disorder, unspecified; G62.9 Polyneuropathy, unspecified; E86.0 Dehydration; N40.0 Benign prostatic hyperplasia without lower urinary tract symptoms; E66.9 Obesity, unspecified; K59.09 Other constipation; I10 Essential (primary) hypertension; F17.200 Nicotine dependence, unspecified, uncomplicated; J96.22 Acute and chronic respiratory failure with hypercapnia; Z99.81 Dependence on supplemental oxygen; Z68.30 Body mass index [BMI] 30.0-30.9, adult; Z98.890 Other specified postprocedural states; Z79.51 Long term (current) use of inhaled steroids; Z79.52 Long term (current) use of systemic steroids; Z79.899 Other long term (current) drug therapy; X58.XXXA Exposure to other specified factors, initial encounter
CPT/HCPCS: 0241U; 36415; 36430; 71046; 74177; 80048; 80053; 80069; 80076; 82274; 82803; 82947; 83605; 83690; 83735; 83880; 84484; 85014; 85018; 85025; 85027; 85379; 85610; 85730; 86850; 86900; 86901; 86920; 86923; 93005; 93010; 94640; 94644; 94660; 94664; 94762; 96365-59; 96375; 96376; 97110; 97162; 97165; 97530; 99285-25; A9270; C9113; J0456; J1650; J1940; J2920; J2930; J7030; J7050; P9016; Q9967